=== PATIENT | male | born 1965 | race Caucasian/White ===

== ENCOUNTER 2022-09-26 16:28 | Inpatient (IN) | payer BC, MEDICAID ==
[~2022-09-26] VITALS: Ht 172.7 cm; Wt 92.6 kg
[~2022-09-26 16:28] MED LIST: ASPI-100 PO; ATOR40TA PO; CLOP75TA15 PO; GLIM4TAB7 PO; HYDR25TA4 PO; LABE100T8 PO; LISI10TA27 PO; NOR5T PO
[2022-09-26 16:56] LABS: BASOPHILS # (AUTO) 0.1 X10'3 (0-0.2); EOSINOPHILS # (AUTO) 0.1 X10'3 (0-0.9); EOSINOPHILS % (AUTO) 1.3 % (0-6); HEMATOCRIT 40.5 % (42.0-52.0); HEMOGLOBIN 13.9 g/dl (14.0-17.9); LYMPHOCYTES # (AUTO) 1.3 X10'3 (1.1-4.8); LYMPHOCYTES % (AUTO) 19.7 % (21-51); MEAN CORPUSCULAR HEMOGLOBIN 31.3 PG (27.0-31.0); MEAN CORPUSCULAR HGB CONC 34.2 g/dL (33.0-36.5); MEAN CORPUSCULAR VOLUME 91.4 FL (78-98); MEAN PLATELET VOLUME 7.2 FL (7.4-10.4); MONOCYTES # (AUTO) 0.5 X10'3 (0-0.9); MONOCYTES % (AUTO) 7.8 % (2-12); NEUTROPHILS # (AUTO) 4.8 X10'3 (1.8-7.7); NEUTROPHILS % (AUTO) 70.2 % (42-75); PLATELET COUNT 272 X10'3 (140-440); RED BLOOD COUNT 4.43 X10'6 (4.70-6.10); RED CELL DISTRIBUTION WIDTH 13.5 % (11.5-14.5); WHITE BLOOD COUNT 6.8 X10'3 (4.5-11.0)
[2022-09-26 17:07] LABS: ALANINE AMINOTRANSFERASE 28 U/L (12-78); ALBUMIN 2.9 G/DL (3.4-5.0); ALBUMIN/GLOBULIN RATIO 0.7 (1.1-1.5); ALKALINE PHOSPHATASE 135 IU/L (46-116); ANION GAP 9 (8-16); ASPARTATE AMINO TRANSFERASE 24 U/L (10-37); BILIRUBIN,TOTAL 0.2 MG/DL (0.1-1.0); BLOOD UREA NITROGEN 29 MG/DL (7-18); BUN/CREATININE RATIO 12.2 (10.0-20.0); CALCIUM 8.7 MG/DL (8.5-10.1); CHLORIDE 103 MMOL/L (99-107); CREATININE 2.38 MG/DL (0.60-1.10); GLUCOSE 264 MG/DL (70-104); POTASSIUM 4.1 MMOL/L (3.5-5.1); SODIUM 137 MMOL/L (135-145); TOTAL CARBON DIOXIDE 25.2 MMOL/L (24-32); TOTAL PROTEIN 7.3 G/DL (6.4-8.2); eGFR 28 ML/MIN
[2022-09-26] MEDS ORDERED: heparin 10,000 units/1 ML INJ IV ONE ×2 (17:25→17:30)
[2022-09-26] MEDS ORDERED: aspirin 81mg tab.chew PO ONE (17:25)
[2022-09-26] MEDS ORDERED: metoprolol tartrate 25mg tablet PO ONE (17:25)
[2022-09-26] MEDS ORDERED: heparin 25,000 UNIT/250ml bag 250 ML IV PRN ×3 (17:25→18:30)
[2022-09-26] MEDS ORDERED: dextrose 50%-water 50ml dispensing syringe IV PRN ×2 (17:50)
[2022-09-26] MEDS ORDERED: potassium Cl 40MEQ/1/2NS 520ml 520 ML IV PRN (17:50)
[2022-09-26] MEDS ORDERED: magnesium 2GM in 50ml NS 50 ML IV PRN (17:50)
[2022-09-26] MEDS ORDERED: aminophylline 250mg/10ml inj. IV PRN (17:50)
[2022-09-26] MEDS ORDERED: insulin Lispro (HumaLOG) vial - multi-dose SQ SCH (17:50)
[2022-09-26] MEDS ORDERED: glucagon, human recombinant 1mg kit SUBCUT PRN (17:50)
[2022-09-26] MEDS ORDERED: ondansetron/PF 4mg/2ml inj IV PRN (17:50)
[2022-09-26] MEDS ORDERED: magnesium 4gm in 100ml NS 100 ML IV PRN (17:50)
[2022-09-26] MEDS ORDERED: ondansetron 4mg rapidly disintigrating tab PO PRN (17:50)
[2022-09-26] MEDS ORDERED: regadenoson 0.4mg/5ml syringe IV PRN (17:50)
[2022-09-26] MEDS ORDERED: magnesium Cl slow-release 64mg tablet PO PRN (17:50)
[2022-09-26] MEDS ORDERED: HYDROcodone/acetaminophen 5mg/325mg tablet PO PRN (17:50)
[2022-09-26] MEDS ORDERED: HYDROcodone/acetaminophen 10/325mg tab PO PRN (17:50)
[2022-09-26] MEDS ORDERED: DEXTROSE 15 GM of carb/4 tabs (each vial/BOTTLE has 4 tablets) PO PRN ×2 (17:50)
[2022-09-26] MEDS ORDERED: acetaminophen 650mg rectal suppository RC PRN (17:50)
[2022-09-26] MEDS ORDERED: metoprolol tartrate 1mg/ml inj IV PRN (17:50)
[2022-09-26] MEDS ORDERED: PERFLUTREN PROTEIN-A MICROSPHR (Optison) 0.22 MG/ML 3ML VIAL IV ONE (17:50)
[2022-09-26] MEDS ORDERED: potassium Cl 20 mEq SR tablet PO PRN ×2 (17:50)
[2022-09-26] MEDS ORDERED: MESSAGE TO PHARMACY PO ONE (17:50)
[2022-09-26] MEDS ORDERED: mag hydrox/Alum hydrox/simeth 30ml oral suspension PO PRN (17:50)
[2022-09-26] MEDS ORDERED: morphine 2 MG/ML inj. syringe IV PRN ×2 (17:50)
[2022-09-26] MEDS ORDERED: magnesium hydroxide 30ml (MOM) UD suspension PO PRN (17:50)
[2022-09-26] MEDS ORDERED: acetaminophen 325mg tablet PO PRN ×2 (17:50)
[2022-09-26] MEDS ORDERED: nitroGLYCERIN 0.4mg SUBLingual tab SL PRN (17:50)
[2022-09-26 18:06] LABS: APTT 30 SECONDS (22-32)
[2022-09-26] MEDS ORDERED: heparin 10,000 units/1 ML INJ IV PRN (18:27)
[2022-09-26 18:36] LABS: CHOL/HDL RATIO 5.2 (0.00-4.99); CHOLESTEROL 241 MG/DL (0-200); HDL CHOLESTEROL 46 MG/DL (35-60); LDL CHOLESTEROL 137 MG/DL (50-100); TRIGLYCERIDES 252 MG/DL (20-135)
[2022-09-26 18:40] LABS: HEMOGLOBIN A1C > 12.0 % (4.5-6.2)
[2022-09-26] MEDS ORDERED: ATOR40TA72 PO (18:54)
[2022-09-26] MEDS ORDERED: CLOP75TA34 PO (18:54)
[2022-09-26] MEDS ORDERED: AMLO10TA13 PO (18:54)
[2022-09-26] MEDS ORDERED: GLIM4TAB7 PO (18:54)
[2022-09-26] MEDS ORDERED: LISI40TA13 PO (18:55)
[2022-09-26] MEDS ORDERED: LABE300T4 PO (18:55)
[2022-09-26] MEDS: metoprolol tartrate 25mg tablet PO SCH (20:00)
[2022-09-26] MEDS: K and/or MAG REPLACEMENT MC SCH (20:00)
[2022-09-26] MEDS: docusate sod 100mg capsule PO SCH (20:32)
[2022-09-26] MEDS ORDERED: insulin glargine (Lantus) pen - multi-dose SQ SCH (21:00)
[2022-09-26] MEDS ORDERED: temazepam 15mg capsule PO PRN (21:00)
[2022-09-26] MEDS ORDERED: atorvastatin 20mg tablet PO SCH (21:00)
--- NOTE | 2022-09-26 22:00 | NUR ---
SHAUNNA HELD R/T HR IN THE 50S
[2022-09-26] MEDS ORDERED: hydrALAZINE 20mg/ml inj. IV ONE (23:25)
[2022-09-27] VITALS (14 sets, daily range): BP systolic 155–182; BP diastolic 75–98
[2022-09-27] MEDS: hydrALAZINE 20mg/ml inj. IV PRN ×2 (02:05→11:03)
--- NOTE | 2022-09-27 02:06 | NUR ---
unable to scan medications as scanner in room and mobile unit are not functioning. Medication administration witnessed by wet process head miller
--- NOTE | 2022-09-27 05:10 | NUR ---
Admitting at bedside to take wallet to safe. items documented, wristband applied to patient. patient signed acknowledging wallet sent to safe.
--- NOTE | 2022-09-27 06:00 | NUR ---
Patient in room ICU 2041. I have received report from Orly JOHNSON and had the opportunity to ask questions and assume patient care.
[2022-09-27] MEDS: metoprolol tartrate 25mg tablet PO SCH (06:50)
[2022-09-27] MEDS: docusate sod 100mg capsule PO SCH (06:50)
[2022-09-27] MEDS: K and/or MAG REPLACEMENT MC SCH (06:50)
[2022-09-27] MEDS ORDERED: lisinopril 20mg tablet PO SCH (08:00)
[2022-09-27] MEDS ORDERED: nicotine 14mg patch - 24hr TD SCH (08:00)
[2022-09-27] MEDS ORDERED: clopidogrel 75mg tablet PO SCH (08:00)
--- NOTE | 2022-09-27 08:05 | NUR ---
Picked up patient from ICU and transported to perform Rachel scan.
[2022-09-27] MEDS ORDERED: aspirin 81mg tab.chew PO SCH (08:30)
[2022-09-27 08:45] LABS: BASOPHILS # (AUTO) 0.1 X10'3 (0-0.2); BASOPHILS % (AUTO) 0.9 % (0-1); EOSINOPHILS # (AUTO) 0.1 X10'3 (0-0.9); EOSINOPHILS % (AUTO) 1.2 % (0-6); HEMATOCRIT 41.3 % (42.0-52.0); HEMOGLOBIN 14.1 g/dl (14.0-17.9); LYMPHOCYTES % (AUTO) 15.7 % (21-51); MEAN CORPUSCULAR HEMOGLOBIN 31.7 PG (27.0-31.0); MEAN CORPUSCULAR HGB CONC 34.1 g/dL (33.0-36.5); MEAN CORPUSCULAR VOLUME 92.9 FL (78-98); MEAN PLATELET VOLUME 7.6 FL (7.4-10.4); MONOCYTES # (AUTO) 0.5 X10'3 (0-0.9); MONOCYTES % (AUTO) 6.9 % (2-12); NEUTROPHILS % (AUTO) 75.3 % (42-75); PLATELET COUNT 213 X10'3 (140-440); RED BLOOD COUNT 4.45 X10'6 (4.70-6.10); RED CELL DISTRIBUTION WIDTH 13.4 % (11.5-14.5); WHITE BLOOD COUNT 6.7 X10'3 (4.5-11.0)
[2022-09-27 08:53] LABS: APTT 53 SECONDS (22-32)
[2022-09-27 09:20] LABS: ALANINE AMINOTRANSFERASE 23 U/L (12-78); ALBUMIN 2.4 G/DL (3.4-5.0); ALBUMIN/GLOBULIN RATIO 0.6 (1.1-1.5); ALKALINE PHOSPHATASE 96 IU/L (46-116); ANION GAP 14 (8-16); ASPARTATE AMINO TRANSFERASE 29 U/L (10-37); BILIRUBIN,TOTAL 0.3 MG/DL (0.1-1.0); BLOOD UREA NITROGEN 24 MG/DL (7-18); CALCIUM 8.8 MG/DL (8.5-10.1); CHLORIDE 105 MMOL/L (99-107); CREATININE 2.19 MG/DL (0.60-1.10); GLUCOSE 196 MG/DL (70-104); MAGNESIUM 1.7 MG/DL (1.5-2.4); POTASSIUM 3.6 MMOL/L (3.5-5.1); SODIUM 138 MMOL/L (135-145); TOTAL CARBON DIOXIDE 19.2 MMOL/L (24-32); TOTAL PROTEIN 6.3 G/DL (6.4-8.2); eGFR 31 ML/MIN
--- NOTE | 2022-09-27 09:22 | NUR ---
Problems reprioritized. Patient report given, questions answered & plan of care reviewed with Ernestine JOHNSON.
--- NOTE | 2022-09-27 09:35 | NUR ---
Patient in room ICU 2041. I have received report from ELIZABETH Berg and had the opportunity to ask questions and assume patient care.
--- NOTE | 2022-09-27 09:45 | NUR ---
Transported patient back to room from Rachel scan, Patient has no c/o chest pain, SOB, nausea, and/or headache. Patient was assisted back to ICU bed and was placed back on monitor by Ernestine JOHNSON. Hand off report given to ASSISTANT TO THE DIRECTOR Ernestine.
--- NOTE | 2022-09-27 09:46 | NUR ---
Patient returned from [facility], A&Ox4 and in no apparent distress at this time. Patient connected to our monitors and given some water.
--- NOTE | 2022-09-27 10:30 | NUR ---
DM consult: Per EMR pt with T2DM, poorly controlled with A1c >12.0% which is up from 7.2% 12/21/20. Per EMR pt with Glimepiride on home med list though pt has not been compliant with his med rx and per H&P pt stopped taking his medications months ago. Pt admit for hypertensive urgency, NSTEMI, and CAD with elevated proBNP. Noted lipid panel: TG 252, CHOL 241, LDL 137, and HDL WNL. Pt with an active heart healthy CHO controlled diet though documented to be NPO. Pt sleeping when RD was present at bedside. Will f/u at another time for DM and heart healthy nutrition therapy educations. Addendum: 09/27/22 at [address] Amended: Links added.
--- NOTE | 2022-09-27 12:58 | NUR ---
Dr. Dotson rounded on the patient and stated okay to stop the Heparin gtt and not cover blood sugar. Patient to be set up with a medical group by employment evaluator/case manager and then patient can discharge. manager inpatient was called and informed of this.MD aware of patient SBP in the 170s after Hydralazine.
--- NOTE | 2022-09-27 13:21 | NUR ---
Megan, manager document control bedside talking with patient. Patient will be referred to the [facility] for a PCP.
[2022-09-27] MEDS ORDERED: LISI20TA28 PO (13:50)
[2022-09-27] MEDS ORDERED: ASPI81TA53 PO (13:50)
[2022-09-27] MEDS ORDERED: NITR0.4T51 SL (13:50)
[2022-09-27] MEDS ORDERED: ATOR20TA66 PO (13:50)
[2022-09-27] MEDS ORDERED: METO50TA17 PO (13:50)
[2022-09-27] MEDS ORDERED: CLOP75TA34 PO (13:50)
[2022-09-27] MEDS ORDERED: EMPA10TA PO (13:50)
[2022-09-27] MEDS ORDERED: GLIM4TAB7 PO (13:50)
--- NOTE | 2022-09-27 14:34 | NUR ---
Patient discharged via and walked out of hospital with x1 RN. Patient took all belongings with him including wallet that was held in ER storage. Patient was given all of the discharge instructions and encouraged to follow the medication list. Patient did not have any questions but stated that he intended on taking his meds and to set up an appointment to establish care with a PCP. Patient IV removed with cannula intact. Patient alert, oriented and in no apparent distress at time of discharge.
== END 2022-09-27 14:30 | disposition home or self-care (01) | DRG 190 ==
LOC: ER 16:29 → ED HOLD 17:58 → ICU 2S 09-27 01:19
PROVIDERS: ADMIT Family Medicine; ATTEND Family Medicine
PROC: 4A02XM4 Measurement of Cardiac Total Activity, External Approach (ICD-10-PCS; principal; 2022-09-27)
PROC: 3E073KZ Introduction of Other Diagnostic Substance into Coronary Artery, Percutaneous Approach (ICD-10-PCS; 2022-09-27)
DX: I21.4 Non-ST elevation (NSTEMI) myocardial infarction (principal); N17.9 Acute kidney failure, unspecified; E11.22 Type 2 diabetes mellitus with diabetic chronic kidney disease; E11.65 Type 2 diabetes mellitus with hyperglycemia; K76.0 Fatty (change of) liver, not elsewhere classified; N18.9 Chronic kidney disease, unspecified; E78.5 Hyperlipidemia, unspecified; E78.00 Pure hypercholesterolemia, unspecified; I16.0 Hypertensive urgency; I12.9 Hypertensive chronic kidney disease with stage 1 through stage 4 chronic kidney disease, or unspecified chronic kidney disease; I25.10 Atherosclerotic heart disease of native coronary artery without angina pectoris; I25.2 Old myocardial infarction; Z87.891 Personal history of nicotine dependence; Z95.5 Presence of coronary angioplasty implant and graft; Z79.899 Other long term (current) drug therapy; Z79.82 Long term (current) use of aspirin
CPT/HCPCS: 36415; 70450; 71045; 76770; 78452; 80053; 80061; 82948; 83036; 83735; 83880; 84484; 85025; 85610; 85730; 87081; 93005; 93017; 93306; 99285; A9500; G0378; J0360; J1644; J1815; J2405; J2785

== ENCOUNTER 2022-11-26 10:48 | Emergency (ER) | payer MEDICAID ==
[~2022-11-26] VITALS: Ht 175.3 cm; Wt 83.0 kg
[~2022-11-26 10:48] MED LIST changes: -ASPI-100 PO; +ASPI81TA53 PO; +ATOR20TA66 PO; -ATOR40TA PO; -CLOP75TA15 PO; +CLOP75TA34 PO; +EMPA10TA PO; -GLIM4TAB7 PO; -HYDR25TA4 PO; -LABE100T8 PO; -LISI10TA27 PO; +LISI20TA28 PO; +METO50TA17 PO; +NITR0.4T51 SL; -NOR5T PO
[2022-11-26 11:25] VITALS: BP 179/102
[2022-11-26] MEDS ORDERED: acetaminophen 325mg tablet PO ONE (12:05)
--- NOTE | 2022-11-26 13:04 | NUR ---
VASC STUDY COMPLETE
== END 2022-11-26 13:32 | disposition home or self-care (01) ==
LOC: ER 10:49
DX: M25.561 Pain in right knee (principal); I25.10 Atherosclerotic heart disease of native coronary artery without angina pectoris; E78.00 Pure hypercholesterolemia, unspecified; I10 Essential (primary) hypertension; I25.2 Old myocardial infarction; E11.9 Type 2 diabetes mellitus without complications; F12.90 Cannabis use, unspecified, uncomplicated; Z98.890 Other specified postprocedural states; Z79.899 Other long term (current) drug therapy; Z79.82 Long term (current) use of aspirin; Z95.5 Presence of coronary angioplasty implant and graft
CPT/HCPCS: 73502; 73564; 93971; 99284